=== PATIENT | female | born 1940 | race Caucasian/White ===

== ENCOUNTER 2016-07-12 12:39 | Inpatient (IN) | payer MEDICARE, OTHER ==
--- NOTE | ~2016-07-12 | DS ---
Discharge Summary [facility] [address] [place]. [address] NAME: BRITTNEY CERVANTES : 42 STATUS : DIS IN PAT#: [id number] AGE: 76 ADM/REG DATE : 07/12/16 MR#: [id number] REPORT SERV DATE: 07/16/16 DICTATED BY: JAVIER MEADE DATE: 07/15/16 REPORT STATUS : Draft TRANSCRIBED BY: MODL DATE: 07/15/16 ADMISSION DATE: 07/12/2016 DISCHARGE DATE: 07/15/2016 REASON FOR ADMISSION: This is a 76-year-old female, who had presented with dysarthria, aphasia and was seen by Neurology and felt to be having a stroke. So, given that she was still within her time frame window, she was admitted to ICU and started on tPA. DISCHARGE DIAGNOSES: 1. Aphasia and dysarthria, status post tPA, possible stroke. 2. Hypertension. 3. Diabetes type 2. A1c 8.1%. 4. Acute kidney injury versus chronic kidney disease. 5. Obesity. HOSPITAL COURSE: The patient was having incoherent language, dysarthria, aphasia on admission and received tPA and her symptoms resolved. She had imaging on admission, CT of brain which would show no acute intracranial abnormality. She would then have MRI of the brain which would show no acute CVA or other acute intracranial pathology. Focal small area of hypointense blooming consistent with evidence of a small old hemorrhage. She would have a CTA of neck and brain which would show moderate stenosis at the origin of the right carotid artery. She would also have an echocardiogram which would show LVEF 56%, mild left ventricle diastolic dysfunction, right ventricle function intact, no significant valvular dysfunction, no cardiac source of embolus. As previously mentioned, the patient's admitting symptoms disappeared after tPA. She was seen by Speech Therapy and found to have no dysphagia, but was not seen by Physical therapy. She had no extremity weakness. The patient ambulating fine and eating fine, so she will be discharged to home. She was started on aspirin and Lipitor here at the hospital and those will be continued. The patient does not currently have a primary care provider and has not seen her supervisor television chassis repair in several months. We have given the patient information for followup to establish a primary care provider and encouraged her to follow up with her supervisor television chassis repair. DISCHARGE MEDICATIONS: 1. Lantus 20 units subcu q.h.s. 2. Lisinopril 40 mg p.o. daily. 3. Humalog 5 units subcu before meals three times a day. 4. Ibuprofen 600 mg p.o. p.r.n. 5. Aspirin 81 mg p.o. daily. 6. Lipitor 80 mg p.o. q.h.s. DISCHARGE PLAN: The patient is discharged to home. Establish a primary care provider with information provided and follow up with the supervisor television chassis repair. The patient also states she plans to keep track for blood pressures with her 's blood pressure. DICTATED BY: Javier Meade APN Discharge Summary [address] [address] NAME: BRITTNEY CERVANTES : 41 STATUS : DIS IN PAT#: [id number] AGE: 76 ADM/REG DATE : 07/12/16 MR#: [id number] REPORT SERV DATE: 07/16/16 DICTATED BY: JAVIER MEADE DATE: 07/15/16 REPORT STATUS : Draft TRANSCRIBED BY: DELFINO DATE: 07/15/16 MARIANO/DELFINO Javier Meade APN / [id number] CC: Preet El M.D.
--- NOTE | ~2016-07-12 | CN ---
Consultation Report [facility] [address] [place]. [address] NAME: BRITTNEY CERVANTES : 42 STATUS : ADM IN [facility]#: [id number] AGE: 76 ADM/REG DATE : 07/12/16 MR#: [id number] REPORT SERV DATE: 07/12/16 DICTATED BY: DATE: REPORT STATUS : Draft TRANSCRIBED BY: MODL DATE: 07/12/16 NEUROLOGY CONSULTATION DATE OF CONSULTATION: 07/12/2016 REASON FOR CONSULT: Possible acute stroke. HISTORY OF PRESENT ILLNESS: This is a 76-year-old female who presented to [facility] on 07/12/2016, secondary to acute onset of difficulty talking per the patient's family's reports. Around 10:30 on the phone, the patient was last noted by family members, she had difficulty talking with the patient noted to have incoherent language as well as dysarthria. The patient's family asked the patient to check her own blood sugar and the patient spilled diabetic testing strips; however, no overt weakness was noted and no focal motor deficit was reported. The patient did not disclose any numbness feelings. The patient's family denies any similar symptoms in the past. The patient does have a history of hypertension and the patient reports compliance. The patient and family reports compliance with medications. The patient does not have any blood thinners and does not report any recent illness, fever, chills, nausea, vomiting, chest pain, or shortness of breath. REVIEW OF SYSTEMS: Otherwise negative except for those mentioned in the HPI. PAST MEDICAL HISTORY: Significant for hypertension and diabetes. SOCIAL HISTORY: The patient quit smoking 10 years ago. Currently denies tobacco, alcohol, or recreational drug usage. FAMILY HISTORY: Significant for stroke. ALLERGIES: THE PATIENT REPORTS NO KNOWN DRUG ALLERGIES. HOME MEDICATIONS: Consist of hypertensive medications and diabetes supplies. PHYSICAL EXAMINATION: VITAL SIGNS: The patient's admission was noted to have blood pressure of 237/107, pulse of 116, and respirations of 20. GENERAL: The patient is well developed, well nourished, in no acute distress. CARDIOVASCULAR: Mildly tachycardic, otherwise no carotid bruits were auscultated. PULMONARY: Examination was clear to auscultation bilaterally. NEUROLOGICAL: On neurological examination, generally the patient is alert and disoriented regarding place and year. She is unable to follow commands at the time of evaluation. The patient at times is able to put out coherent language but at times was noted to have fragmented speech. Mild dysarthria was noted. Registration and recall were unable to be performed secondary to the patient's language. At the time of evaluation, the patient was Consultation Report [address] [place]. [address] NAME: BRITTNEY CERVANTES : 42 STATUS : ADM IN PAT#: [id number] AGE: 76 ADM/REG DATE : 07/12/16 MR#: [id number] REPORT SERV DATE: 07/12/16 DICTATED BY: DATE: REPORT STATUS : Draft TRANSCRIBED BY: MODL DATE: 07/12/16 noted to have pupils equal, round, and reactive to light. Horizontal eye movement was noted to be intact with intact [id number] response. Mild decreased nasolabial fold on the right. Otherwise, symmetrical facial expression. Apparent intact facial sensation. Midline tongue. The patient was noted to have intact sensation in bilateral upper and lower extremity with the patient able to maintain bilateral upper and lower extremity arm and leg elevation for 10 seconds in upper extremity and 5 seconds in the lower extremity. Deep tendon reflex was otherwise 2+ throughout. No apparent ataxia was noted. Gait was not tested secondary to the patient's acute symptoms. LAB DATA: At the time of evaluation, the patient's laboratory study demonstrates sodium 134, potassium 5.1, chloride 104, bicarb of 20, BUN of 16, creatinine 1.23, glucose of 286, calcium of 10.2, white blood cell count of 8.1, hemoglobin of 16.4, hematocrit of 44.6, and platelet count of 240. CT scan of the brain without contrast demonstrated no acute process with CT angiogram head and neck demonstrated no significant proximal stenosis or blockage or thrombus. IMPRESSION: 1. Aphasia symptom noted around 11 o'clock with the patient last noted to be normal at 10:30. When family member talked to the patient on the phone, no clear motor deficit was seen by the family member while on examination but family noted the patient spilled diabetic testing strips during the time of onset. NIH stroke scale was noted to be 5. After blood pressure control, Alteplase was administered at 12:47. We will admit the patient to ICU with stroke workup. 2. Hypertensive emergency. Cardene drip as needed for systolic blood pressure greater than 185 mmHg. RECOMMENDATIONS: 1. ICU admission. 2. Cardene drip for systolic blood pressure greater than 185 mmHg. 3. MRI of the brain without contrast. 4. Echocardiogram. 5. Lipitor 80 mg p.o. at bedtime. 6. Speech therapy. [facility]/MODL Wesley Moran MD / [id number]
--- NOTE | ~2016-07-12 | HP ---
History And Physical [address] [place]. [address] NAME: BRITTNEY CERVANTES : 42 STATUS : ADM IN [facility]#: [id number] AGE: 76 ADM/REG DATE : 07/12/16 MR#: [id number] REPORT SERV DATE: 07/12/16 DICTATED BY: BRANDY VENTURA DATE: 07/12/16 REPORT STATUS : Draft TRANSCRIBED BY: MODTiti DATE: 07/12/16 DATE OF ADMISSION: 07/12/2016 Pulmonary And Critical Care Medicine Admitting History And Physical REASON FOR ADMISSION: Aphasia with suspected CVA, status post tPA. HISTORY OF PRESENT ILLNESS: Ms. Cervantes is a pleasant 76-year-old lady who has limited contact with medical care. She presented to our emergency department this morning after developing acute dysarthria including slurred speech and some nonsensical speaking according to her family around 10:45 a.m. She was seen by Dr. Roberson in the emergency department and code stroke was called. Her initial NIH stroke scale was 6, mostly for dysarthria. She was taken emergently to CT, which showed no acute intracranial bleeding and also had a CTA of the head and neck, which showed right carotid plaque. She was seen by Dr. Moran and ultimately was given a tPA infusion which was bolused at 1247 hours this afternoon in the emergency department. She is now being moved to the intensive care unit for close monitoring for the first 24 hours following tPA administration and additional stroke care. PAST MEDICAL HISTORY: Type 2 diabetes mellitus which is poorly controlled. She is on home Lantus and Humalog premeal, has been admitted for prior DKA most recently by Dr. Braden Mendez in 2007, hypertension on home lisinopril monotherapy. She was in the emergency department. on 01/07/2012 for hypertensive crisis, dyslipidemia, and chronic neck pain. PAST SURGICAL HISTORY: Total abdominal hysterectomy, cholecystectomy, C-spine fusion around thirty five years ago and again in 08/2007. SOCIAL HISTORY: She is a long-time smoker, one pack per day. Denies alcohol or illicit drug use. 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 She is and has two children. FAMILY HISTORY: Both of her children are diabetic, requiring insulin. ALLERGIES: NO KNOWN DRUG ALLERGIES. HOME MEDICATIONS: Lantus 20 units subcutaneous at bedtime with Humalog 5 units t.i.d. with meals, lisinopril 40 mg a day and heavy NSAID use including copious amounts of ibuprofen. ADVANCED DIRECTIVES/LIVING WILL: None. CODE STATUS: She is full code. REVIEW OF SYSTEMS: Review of systems is negative except for those described above in the history of present illness section of the dictation. PHYSICAL EXAMINATION: History And Physical [address] [address] NAME: BRITTNEY CERVANTES : 42 STATUS : ADM IN PAT#: [id number] AGE: 76 ADM/REG DATE : 07/12/16 MR#: [id number] REPORT SERV DATE: 07/12/16 DICTATED BY: BRANDY VENTURA DATE: 07/12/16 REPORT STATUS : Draft TRANSCRIBED BY: DELFINO DATE: 07/12/16 GENERAL: The patient is an elderly obese female, in no acute distress. She does have some dysarthria. She is awake, alert, and oriented, and able to communicate sufficiently to express herself. HEENT: Head is atraumatic, normocephalic. Pupils are equal, round, and reactive to light. Extraocular movements are intact. She has fair oral dentition and moist oral mucosa. NECK: Supple with copious redundant soft tissue about the level of the neck. HEART: S1, S2. Mildly tachycardic (regular). She has brisk capillary refill in all four extremities distally. LUNGS: With few bilateral crackles at the bases, otherwise unremarkable, no wheezing. ABDOMEN: Obese, soft, nontender, nondistended with previous surgical scar from total abdominal hysterectomy, which is well healed. : Unremarkable. Normal external female genitalia. There is no Liu catheter at the time of ICU admission. EXTREMITIES: With trace pitting edema bilaterally. LYMPHATIC: Exam is unremarkable. NEUROLOGIC: Exam is significant for the aphasia as described above, but is able to move all extremities. PSYCHIATRIC: Appropriate to situation. LABORATORY AND DIAGNOSTIC STUDIES: Personal review of diagnostic workup completed in the emergency department, CBC is unremarkable. She has mild polycythemia with hemoglobin of 16.4, hematocrit of 44.6, normal MCV and MCH as well as a normal RDW. Platelet count is normal and coags are unremarkable. Metabolic profile is significant for mild hyperkalemia; however, brick and blocker aid labor noted that the specimen was slightly hemolyzed and we will repeat the study to confirm. She has mild metabolic acidosis with a CO2 level of 20, BUN and creatinine are mildly elevated with a BUN of 16 and a creatinine of 1.23, unknown if she has some degree of chronic kidney disease. Calculated GFR is 43 mL/minute. She is hyperglycemic with a glucose level of 286. Normal LFTs including transaminases and negative troponin. CT of the head and neck was reviewed, demonstrating no intracranial bleeding on ulcerated plaque with moderate stenosis at the origin of the right internal carotid, and otherwise no filling defects in the major cerebral arteries. An EKG shows sinus tach of 122 with a QT of [address] elevation or depression by my assessment. IMPRESSION: 1. Aphasia, likely cerebrovascular accident. She has multiple cerebrovascular accident risk factors including hypertension, dyslipidemia, and uncontrolled diabetes. She is status post tPA in the emergency department today and has already been seen by Dr. Moran, and started on stroke protocol as above, NIH stroke scale was 6 at the time of admission and a tPA bolus was given at 1247 hours on 07/12/2016. 2. Hypertensive emergency. Status post initiation of Cardene drip. We will allow some permissive hypertension and titrate to a systolic blood pressure based on Neuro recommendations. 3. Diabetes mellitus. She is on home insulin. We will hold her long-acting insulin while she is n.p.o. pending dysphagia screening and proceed with short-acting correction insulin only. Check an A1c and move forward from there. She would benefit from insulin teaching and diabetic education during this admission. 4. Dyslipidemia. Check a lipid panel and proceed with atorvastatin daily. History And Physical [address] [address] NAME: BRITTNEY CERVANTES : 42 STATUS : ADM IN PAT#: [id number] AGE: 76 ADM/REG DATE : 07/12/16 MR#: [id number] REPORT SERV DATE: 07/12/16 DICTATED BY: BRANDY VENTURA DATE: 07/12/16 REPORT STATUS : Draft TRANSCRIBED BY: MODL DATE: 07/12/16 5. Question of acute kidney injury. We will try to obtain old records to see what her baseline creatinine is and avoid nephrotoxins. 6. Morbid obesity. Would benefit from weight loss. 7. History of tobacco abuse. Continue counseling. She is full code. SCDs and EMILEE's for DVT prophylaxis until tPA window closes. Otherwise, continue routine stroke care. Plan to transfer to the floor tomorrow afternoon once her tPA window close is pending clinical stability. Dr. Moran's assistance is much appreciated. Family has been updated at the bedside. LEOPOLDO/DELFINO Brandy Ventura MD / [id number] CC: Brandy Ventura MD
[2016-07-12 12:20] LABS: BASOPHILS 0.4 %; BASOPHILS ABSOLUTE 0.03 10/3/uL (0.0-0.16); EOSINOPHILS 2.1 %; EOSINOPHILS ABSOLUTE 0.17 10/3/uL (0.0-0.53); ER CBC TAT 0 Hrs 05 Mins; HEMATOCRIT 44.6 % (36.0-48.0); HEMOGLOBIN 16.4 g/dL (12.0-16.0); IMMATURE GRANULOCYTES 0.4 %; IMMATURE GRANULOCYTES ABSOLUTE 0.03 10/3/uL (0.0-0.11); LYMPHOCYTES 20.4 %; LYMPHOCYTES ABSOLUTE 1.65 10/3/uL (0.67-4.30); MANUAL DIFF NO %; MEAN CORPUS HGB CONC 36.8 g/dL (32.0-36.0); MEAN CORPUSCULAR HEMOGLOB 29.5 pg (26.0-34.0); MEAN CORPUSCULAR VOLUME 80.2 fL (80-100); MEAN PLATELET VOLUME 11.1 fL (9.2-13.0); MONOCYTES 6.7 %; MONOCYTES ABSOLUTE 0.54 10/3/uL (0.21-1.20); NEUTROPHILS ABSOLUTE 5.65 10/3/uL (2.02-8.40); PLATELET COUNT 240 10/3/uL (150-400); RED CELL COUNT 5.56 10/6/uL (4.0-5.6); WHITE BLOOD CELLS 8.1 10/3/uL (4.5-10.5)
[2016-07-12 12:27] LABS: PARTIAL THROMBO TIME 27.1 SEC (22.5-37.2); PROTIME (NOT ORD) 12.7 SEC (12.0-14.5)
[~2016-07-12 12:39] MED LIST: ADVIL PO; HUMALOG SC; LANTUS SC; ZESTRIL40 MG PO
[2016-07-12 12:44] LABS: ALBUMIN 3.8 G/DL (3.5-5.0); ALKALINE PHOSPHATASE 78 U/L (45-117); BUN (BLOOD UREA NITROGEN) 16 MG/DL (6-23); CALCIUM, SERUM 10.2 MG/DL (8.5-10.4); CHLORIDE, SERUM 104 MMOL/L (96-112); CO2 (CARBON DIOXIDE) 20 MMOL/L (24-34); CREATININE 1.23 MG/DL (0.55-1.02); GFR AFRICAN AMERICAN 50 ML/MIN (>=60); GFR NON AFRICAN AMERICAN 43 ML/MIN (>=60); GLOBULIN 3.9 G/DL (2.5-4.1); SGPT(ALT) 29 U/L (5-65); SODIUM, SERUM 134 MMOL/L (135-148); TOTAL BILIRUBIN 0.5 MG/DL (0-1.2); TOTAL PROTEIN 7.7 G/DL (6.0-8.5); TROPONIN I <0.02 NG/ML (<0.05)
[2016-07-12 12:45] LABS: GLUCOSE, SERUM 286 MG/DL (60-99); POTASSIUM, SERUM 5.1 MMOL/L (3.5-5.3); SGOT(AST) 33 U/L (5-40)
[2016-07-12 19:07] LABS: CPK 106 U/L (0-200); FREE T4 1.32 NG/DL (0.76-1.46); PHOSPHORUS, SERUM 3.6 MG/DL (2.5-4.5); TROPONIN I 0.02 NG/ML (<0.05)
[2016-07-12 19:09] LABS: CK-MB 3.4 NG/ML; FOLATE 31.4 NG/ML (>5.2)
[2016-07-12 21:02] LABS: ASCORBIC ACID (UR NOT ORDER) NEG (NEG); BILIRUBIN, URINE NEGATIVE (NEG); KETONE, URINE NEGATIVE (NEG); LEUKOCYTE ESTERASE(NOT OR SMALL (NEG); WBC (NOT ORDERED) (RFLEX) 10 (0-5)
[2016-07-13 02:00] LABS: BASOPHILS 0.3 %; BASOPHILS ABSOLUTE 0.04 10/3/uL (0.0-0.16); EOSINOPHILS 0.6 %; EOSINOPHILS ABSOLUTE 0.08 10/3/uL (0.0-0.53); HEMATOCRIT 43.9 % (36.0-48.0); HEMOGLOBIN 15.8 g/dL (12.0-16.0); IMMATURE GRANULOCYTES 0.4 %; IMMATURE GRANULOCYTES ABSOLUTE 0.05 10/3/uL (0.0-0.11); LYMPHOCYTES 11.2 %; LYMPHOCYTES ABSOLUTE 1.56 10/3/uL (0.67-4.30); MEAN CORPUSCULAR HEMOGLOB 29.3 pg (26.0-34.0); MEAN CORPUSCULAR VOLUME 81.3 fL (80-100); MEAN PLATELET VOLUME 11.1 fL (9.2-13.0); MONOCYTES 6.7 %; MONOCYTES ABSOLUTE 0.94 10/3/uL (0.21-1.20); NEUTROPHILS 80.8 %; NEUTROPHILS ABSOLUTE 11.28 10/3/uL (2.02-8.40); PLATELET COUNT 305 10/3/uL (150-400); RBC DISTRIBUTION WIDTH 13.7 % (12.0-16.0)
[2016-07-13 02:03] LABS: BUN (BLOOD UREA NITROGEN) 17 MG/DL (6-23); CALCIUM, SERUM 9.5 MG/DL (8.5-10.4); CHLORIDE, SERUM 103 MMOL/L (96-112); CHOLESTEROL 222 MG/DL (< 200); CPK 101 U/L (0-200); CREATININE 1.34 MG/DL (0.55-1.02); GFR AFRICAN AMERICAN 45 ML/MIN (>=60); GFR NON AFRICAN AMERICAN 39 ML/MIN (>=60); HDL CHOLESTEROL 55 MG/DL (> 49); LDL CHOLESTEROL 137 MG/DL (< 130); NON-HDL CHOLESTEROL 167 MG/DL (< 160); PHOSPHORUS, SERUM 3.5 MG/DL (2.5-4.5); POTASSIUM, SERUM 4.2 MMOL/L (3.5-5.3); SODIUM, SERUM 140 MMOL/L (135-148); TRIGLYCERIDE 153 MG/DL (< 150); TROPONIN I 0.03 NG/ML (<0.05)
[2016-07-13 02:04] LABS: CO2 (CARBON DIOXIDE) 25 MMOL/L (24-34); GLUCOSE, SERUM 205 MG/DL (60-99); MANUAL DIFF NO %
[2016-07-13 07:15] LABS: GLYCOHEMOGLOBIN (HbA1c) 8.1 % (4.7-6.1)
[2016-07-13 10:27] LABS: TROPONIN I <0.02 NG/ML (<0.05)
[2016-07-13 10:28] LABS: CK-MB 2.7 NG/ML; CPK 141 U/L (0-200)
[2016-07-14 04:45] LABS: BASOPHILS 0.2 %; BASOPHILS ABSOLUTE 0.03 10/3/uL (0.0-0.16); EOSINOPHILS 1.7 %; EOSINOPHILS ABSOLUTE 0.23 10/3/uL (0.0-0.53); HEMATOCRIT 41.7 % (36.0-48.0); HEMOGLOBIN 14.8 g/dL (12.0-16.0); IMMATURE GRANULOCYTES 0.3 %; IMMATURE GRANULOCYTES ABSOLUTE 0.04 10/3/uL (0.0-0.11); LYMPHOCYTES 15.1 %; LYMPHOCYTES ABSOLUTE 2.06 10/3/uL (0.67-4.30); MEAN CORPUS HGB CONC 35.5 g/dL (32.0-36.0); MEAN CORPUSCULAR HEMOGLOB 29.2 pg (26.0-34.0); MEAN CORPUSCULAR VOLUME 82.4 fL (80-100); MEAN PLATELET VOLUME 11.7 fL (9.2-13.0); MONOCYTES 8.6 %; MONOCYTES ABSOLUTE 1.18 10/3/uL (0.21-1.20); NEUTROPHILS 74.1 %; NEUTROPHILS ABSOLUTE 10.11 10/3/uL (2.02-8.40); PLATELET COUNT 354 10/3/uL (150-400); RBC DISTRIBUTION WIDTH 14.3 % (12.0-16.0); RED CELL COUNT 5.06 10/6/uL (4.0-5.6); WHITE BLOOD CELLS 13.7 10/3/uL (4.5-10.5)
[2016-07-14 04:46] LABS: MANUAL DIFF NO %
[2016-07-14 07:32] LABS: ALBUMIN 3.3 G/DL (3.5-5.0); BUN (BLOOD UREA NITROGEN) 24 MG/DL (6-23); CALCIUM, SERUM 9.4 MG/DL (8.5-10.4); CHLORIDE, SERUM 100 MMOL/L (96-112); CO2 (CARBON DIOXIDE) 27 MMOL/L (24-34); CREATININE 1.38 MG/DL (0.55-1.02); GFR AFRICAN AMERICAN 43 ML/MIN (>=60); GFR NON AFRICAN AMERICAN 37 ML/MIN (>=60); GLUCOSE, SERUM 208 MG/DL (60-99); PHOSPHORUS, SERUM 2.6 MG/DL (2.5-4.5); POTASSIUM, SERUM 4.3 MMOL/L (3.5-5.3); SODIUM, SERUM 135 MMOL/L (135-148)
[2016-07-15 05:34] LABS: BUN (BLOOD UREA NITROGEN) 30 MG/DL (6-23); CALCIUM, SERUM 9.6 MG/DL (8.5-10.4); CHLORIDE, SERUM 101 MMOL/L (96-112); CO2 (CARBON DIOXIDE) 27 MMOL/L (24-34); CREATININE 1.33 MG/DL (0.55-1.02); GFR AFRICAN AMERICAN 45 ML/MIN (>=60); GFR NON AFRICAN AMERICAN 39 ML/MIN (>=60); GLUCOSE, SERUM 191 MG/DL (60-99); PHOSPHORUS, SERUM 2.4 MG/DL (2.5-4.5); POTASSIUM, SERUM 4.4 MMOL/L (3.5-5.3); SODIUM, SERUM 135 MMOL/L (135-148)
[2016-07-15 05:35] LABS: BASOPHILS 0.4 %; BASOPHILS ABSOLUTE 0.04 10/3/uL (0.0-0.16); EOSINOPHILS ABSOLUTE 0.32 10/3/uL (0.0-0.53); HEMATOCRIT 40.2 % (36.0-48.0); HEMOGLOBIN 14.1 g/dL (12.0-16.0); IMMATURE GRANULOCYTES 0.3 %; IMMATURE GRANULOCYTES ABSOLUTE 0.03 10/3/uL (0.0-0.11); LYMPHOCYTES 19.8 %; LYMPHOCYTES ABSOLUTE 2.08 10/3/uL (0.67-4.30); MEAN CORPUS HGB CONC 35.1 g/dL (32.0-36.0); MEAN CORPUSCULAR HEMOGLOB 28.8 pg (26.0-34.0); MEAN CORPUSCULAR VOLUME 82.2 fL (80-100); MEAN PLATELET VOLUME 11.1 fL (9.2-13.0); MONOCYTES 8.8 %; MONOCYTES ABSOLUTE 0.93 10/3/uL (0.21-1.20); NEUTROPHILS 67.7 %; NEUTROPHILS ABSOLUTE 7.12 10/3/uL (2.02-8.40); PLATELET COUNT 261 10/3/uL (150-400); RBC DISTRIBUTION WIDTH 14.3 % (12.0-16.0); RED CELL COUNT 4.89 10/6/uL (4.0-5.6); WHITE BLOOD CELLS 10.5 10/3/uL (4.5-10.5)
[2016-07-15 05:38] LABS: MANUAL DIFF NO %
[2016-07-15] MEDS ORDERED: ASAB PO (17:35)
[2016-07-15] MEDS ORDERED: LIPITOR80 MG PO (17:36)
[2016-07-20 12:46] LABS: CREATININE 1.1 MG/DL (0.55-1.02)
== END 2016-07-15 18:32 | disposition home or self-care (01) | DRG 62 ==
LOC: ER 12:39 → CCU 13:36 → 1SO 07-14 13:56
PROVIDERS: Emergency Medicine; Internal Medicine; Internal Medicine Critical Care Medicine
DX: I63.231 Cerebral infarction due to unspecified occlusion or stenosis of right carotid arteries (principal); N17.9 Acute kidney failure, unspecified; E87.2 Acidosis; I16.1 Hypertensive emergency; E11.22 Type 2 diabetes mellitus with diabetic chronic kidney disease; R13.10 Dysphagia, unspecified; E11.65 Type 2 diabetes mellitus with hyperglycemia; I12.9 Hypertensive chronic kidney disease with stage 1 through stage 4 chronic kidney disease, or unspecified chronic kidney disease; N18.9 Chronic kidney disease, unspecified; Z68.38 Body mass index [BMI] 38.0-38.9, adult; R29.706 NIHSS score 6; R47.01 Aphasia; R47.1 Dysarthria and anarthria; E78.5 Hyperlipidemia, unspecified; E66.01 Morbid (severe) obesity due to excess calories; G89.29 Other chronic pain; M54.2 Cervicalgia; Z79.4 Long term (current) use of insulin; Z79.899 Other long term (current) drug therapy; Z87.891 Personal history of nicotine dependence; Z98.1 Arthrodesis status
CPT/HCPCS: 36415; 70450; 70496; 70498; 70551; 71010; 74000; 80048; 80053; 80061; 80069; 81001; 82140; 82550; 82553; 82607; 82746; 82962; 83036; 83735; 84100; 84439; 84443; 84484; 85025; 85610; 85730; 86850; 86900; 86901; 87086; 87641; 92523-GN; 93005; 93306; 96374; 96375; 99291; A9270-GY; G9162-CI-GN; G9163-CI-GN; G9164-CI-GN; J0360; J2405; J2997; J3475; Q9967

== ENCOUNTER 2016-07-22 18:45 | Emergency (ER) | payer MEDICARE, OTHER ==
[~2016-07-22 18:45] MED LIST changes: +ASAB PO; +LIPITOR80 MG PO
[2016-07-22 19:17] LABS: BASOPHILS 0.3 %; BASOPHILS ABSOLUTE 0.04 10/3/uL (0.0-0.16); EOSINOPHILS 1.8 %; EOSINOPHILS ABSOLUTE 0.24 10/3/uL (0.0-0.53); HEMATOCRIT 42.3 % (36.0-48.0); IMMATURE GRANULOCYTES 0.4 %; IMMATURE GRANULOCYTES ABSOLUTE 0.06 10/3/uL (0.0-0.11); LYMPHOCYTES ABSOLUTE 2.03 10/3/uL (0.67-4.30); MEAN CORPUS HGB CONC 35.5 g/dL (32.0-36.0); MEAN CORPUSCULAR HEMOGLOB 28.8 pg (26.0-34.0); MEAN CORPUSCULAR VOLUME 81.3 fL (80-100); MEAN PLATELET VOLUME 11.2 fL (9.2-13.0); MONOCYTES ABSOLUTE 1.08 10/3/uL (0.21-1.20); NEUTROPHILS 74.5 %; NEUTROPHILS ABSOLUTE 10.11 10/3/uL (2.02-8.40); PLATELET COUNT 310 10/3/uL (150-400); RBC DISTRIBUTION WIDTH 14.1 % (12.0-16.0); WHITE BLOOD CELLS 13.6 10/3/uL (4.5-10.5)
[2016-07-22 19:18] LABS: MANUAL DIFF NO %
[2016-07-22 19:27] LABS: INTERNATIONAL NORMAL RATI 1.1 UNITS (-); PARTIAL THROMBO TIME 31.8 SEC (22.5-37.2); PROTIME (NOT ORD) 13.9 SEC (12.0-14.5)
[2016-07-22 19:35] LABS: CALCIUM, SERUM 10.4 MG/DL (8.5-10.4); CHEST PAIN PROFILE TAT 0 Hrs 22 Mins; CHLORIDE, SERUM 103 MMOL/L (96-112); CO2 (CARBON DIOXIDE) 28 MMOL/L (24-34); CREATININE 1.11 MG/DL (0.55-1.02); GFR AFRICAN AMERICAN 56 ML/MIN (>=60); GFR NON AFRICAN AMERICAN 49 ML/MIN (>=60); POTASSIUM, SERUM 4.3 MMOL/L (3.5-5.3); SODIUM, SERUM 136 MMOL/L (135-148); TROPONIN I <0.02 NG/ML (<0.05)
[2016-07-22 19:36] LABS: BUN (BLOOD UREA NITROGEN) 17 MG/DL (6-23); GLUCOSE, SERUM 132 MG/DL (60-99)
== END 2016-07-23 00:05 | disposition home or self-care (01) ==
LOC: ER 18:45
PROVIDERS: Emergency Medicine
DX: I10 Essential (primary) hypertension (principal); E78.5 Hyperlipidemia, unspecified; I51.7 Cardiomegaly; E11.9 Type 2 diabetes mellitus without complications; F17.200 Nicotine dependence, unspecified, uncomplicated; Z79.4 Long term (current) use of insulin; Z79.82 Long term (current) use of aspirin; Z79.899 Other long term (current) drug therapy
CPT/HCPCS: 71020; 80048; 83735; 84484; 85025; 85610; 85730; 93005; 99284